=== PATIENT | female | born 1990 | race Caucasian/White ===

== ENCOUNTER 2021-01-20 02:01 | Outpatient (CLI) | payer MEDICAID, SELFPAY ==
--- NOTE | 2021-01-21 07:05 | DI.US_ITS ---
Exam(s) US OB 1ST TRIMESTER EXAM: US OB 1ST TRIMESTER CLINICAL HISTORY: ? dates,z34.90. COMPARISON: No exams were available for comparison TECHNIQUE: Transabdominal Transvaginal first trimester obstetrical ultrasound performed. FINDINGS: Sonographic images demonstrate a single intrauterine gestation. An intrauterine gestation is visualized. Sonographically assessed gestational age based upon crown-rump length of 6.6 cm is: 12 weeks 6 days Estimated date of delivery based on this ultrasound is: 07/30/2021 heart rate motion is Dopplered at: 141 bpm. No free fluid identified. The placenta appears posteriorly. Adjacent to the placenta is a round 4.1 x 5.4 x 4.5 cm hypoechoic area. This may represent a uterine fibroid. No internal blood flow is seen. It appears distinct fr om the placenta. And is separate from the cord insertion site. Pelvic Measurments Uterus: 13.3 x 8.8 x 9.8 cm Rt Ovary: Not visualized on this examination. Lt Ovary: 2.8 x 2.4 x 2.0 cm IMPRESSION: 1. Single living intrauterine gestation. Estimated sonographic age is 12 weeks 6 days. 2. Hypoechoic 4.1 x 5.4 x 4.5 cm round area associated with the uterus. It is separate from the plac enta and fetus. It may represent a uterine fibroid. DATA REPOSITORY:
== END 2021-01-20 02:21 ==
PROVIDERS: Visit Provider Advanced Practice Midwife
DX: Z34.91 Encounter for supervision of normal pregnancy, unspecified, first trimester (principal); R93.89 Abnormal findings on diagnostic imaging of other specified body structures
CPT/HCPCS: 76801

== ENCOUNTER 2021-02-14 11:51 | Emergency (ER) | payer MEDICAID, SELFPAY ==
[2021-02-14] VITALS (14 sets, daily range): BP systolic 79–126; BP diastolic 51–100; PULSE 72–114; RESP 10–26; TEMP 36.6; O2SAT 96–99
[2021-02-14 12:31] LABS: Abs Immature Grans 0.07 10^3/uL (0.0-0.06); Absolute Basophil Count 0.04 10^3/uL (0.0-0.2); Absolute Lymphocyte Count 3.16 10^3/uL (1.2-3.4); Absolute Monocyte Count 0.85 10^3/uL (0.1-0.8); Absolute Neutrophil Count 6.47 10^3/uL (1.2-6.7); Basophils % 0.4; Eosinophils % 0.9; HCT 38.2 % (36.0-46.0); HGB 13.1 g/dL (11.2-15.7); Immature Grans % 0.7; Lymphocytes % 29.6; MCH 30.8 pg (27.0-33.0); MCHC 34.3 % (32.0-36.0); MCV 89.9 fL (80-95); MPV 9.6 fL (8.0-11.0); Neutrophils % 60.4; Nucleated RBC 0 %; Platelet Count 290 10^3/uL (130-400); RBC 4.25 10^6/uL (3.93-5.22); RDW 11.9 % (11.7-14.6); RDW-SD 38.7 fL; WBC 10.69 10^3/uL (4.4-10.8)
--- NOTE | 2021-02-14 12:35 | ED.GENADUL_ITS ---
Discharge Plan Disposition Patient Disposition: HOME Condition: Stable Discharge Details Clinical Impression: demise Primary Care Provider: Flor,Local ED Provider: Augustine Humphrey Home Meds and New Rx's Prescriptions: Continued methadone 150 mg 150 mg PO DAILY RF: 0 PNV cmb#95-ferrous fumarate-FA 28 mg iron- 800 mcg tablet 1 tab PO DAILY Qty: 90 RF: 3 No Action ibuprofen 800 mg tablet 800 mg PO Q8H PRNQty: 30 RF: 0 Discharge Instructions Additional Instructions: Please rest at home. No exertional activities. Please follow-up with [facility] obstetricians as discussed with Dr. Gonzalez. If you have increased bleeding please call your OB and go to the closest ER. Return to the ER immediately for any worsening or new concerning symptoms. Discharge Data Discharge Date/Time-TO BE ENTERED AT DEPARTURE: 02/14/21 16:07 Medical Decision Making 1239 -- 30-year-old smoker at 5 months here with vaginal bleeding that started yesterday and has worsened. Patient now having to change pads every hour. She has associated mild lower abdominal cramping. No associated fever. No recent trauma. No recent sexual activity. Patient is tachycardic, normotensive. Bedside [id number] ultrasound reveals intrauterine fetus with no movement and no heartbeat. Concern for intrauterine hemorrhage. I spoke with Dr. Gonzalez, on-call OB, discussed ED presentation course. She requests official ultrasound and will evaluate the pt. 1430 --ultrasound reveals demise. Approximately 16 weeks gestational age. 1550 -- Hb nl. patient was seen by Dr. Gonzalez who spoke with [place] [facility] recommends discharge with outpatient follow-up [place] [facility] Plan was for the patient. Usual customary discharge instructions reviewed with patient. HPI General Mode of arrival: ambulatory . Date/Time Provider Initiated Documentation: 02/14/21 12:01 . Limitations to Documentation: no limitations . Information obtained by: patient . HPI Narrative: 30-year-old smoker at 5 months here with vaginal bleeding that started yesterday and has worsened. Patient now having to change pads every hour. Symptoms severe. No modifiers. She has associated mild lower abdominal cramping. No associated fever. No recent trauma. No recent sexual activity. 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: 3 Review of Systems All systems reviewed & are unremarkable except as noted in HPI and below Constitutional Constitutional: Denies fever(s) Respiratory Respiratory: Reports as per HPI Genitourinary Genitourinary: Reports as per HPI [facility] Medical History (Updated 02/18/21 @ 15:52 by Roseline Zamorano LPN) History of drug dependence/abuse heroin and cocaine Positive test Threatened miscarriage Vaginal bleeding in patient at less than 20 weeks gestation Vaginal delivery Family History Maternal Grandfather Hypertension Diabetes Maternal Grandmother Diabetes Hypertension Social History Smoking/Tobacco Use Status: Current every day Tobacco Type: cigarettes Smoking risk assessment performed?: Yes Alcohol Intake: current Drug use: Current Sobriety Substance use type: former substance user Details: Currently on 150mg Methadone daily Do you feel safe at home: Yes Do you feel safe in your relationship?: Yes History History 5 Para Hx # Term Pregnancies 2 Multiple births Hx # Pregnancies 1 Ectopic pregnancies AB induced Hx Number of Living Children 3 AB spontaneous 2 Past Pregnancies Del. Date GA/Weeks # Outcome Route Wgt Sex Labor Lgth Anesthes ia Location Prov Complic 02/14/21 16 No Unsuccessful vaginal Male Sammy Gonzalez DO Delivery Date: 02/14/21 demise; spontaneous labor with cytotec for labor augmentation. Roseline Zamorano Exam Const General: cooperative and no acute distress HENMT Mouth: moist mucous membranes Eyes Conjunctivae: normal conjunctivae Sclera: normal sclerae Neck Neck: trachea midline Resp Auscultation: clear to auscultation bilaterally, no rales, no rhonchi and no wheezes Cardio Rate: tachycardic Rhythm: regular rhythm GI Inspection: other (gravid abd) Palpation: soft, not firm, no guarding, not rigid and nontender Skin General skin exam: no rashes or lesions noted Neuro General: patient alert, patient awake, patient oriented x3 and tone normal Extrem General: no edema Psych Appearance: grossly normal Mental Status: mental status grossly normal Course Vital Signs Vital signs: Vital Signs Temperature 36.6 C 02/14/21 11:56 Pulse 114 H 02/14/21 11:56 Respiratory Rate 18 02/14/21 11:56 Blood Pressure 126/100 H 02/14/21 11:56 Pulse Oximetry 99 02/14/21 11:56 Temperature 36.6 C 02/14/21 11:56 Temperature Source Skin 02/14/21 11:56 Pulse 114 H 02/14/21 11:56 Respiratory Rate 18 02/14/21 11:56 Respiratory Effort Non-Labored 02/14/21 11:59 Blood Pressure 126/100 H 02/14/21 11:56 Blood Pressure Position Sitting 02/14/21 11:56 Pulse Oximetry 99 02/14/21 11:56 Oxygen Delivery Method Room Air 02/14/21 11:56 Oxygen Flow Rate 0 02/14/21 11:56 Pain Level 4 02/14/21 12:22 Lab/Test Results Lab/Test Results: Laboratory Tests Range/Units 02/14/21 12:15 WBC (4.4-10.8) 10^3/uL 10.69 RBC (3.93-5.22) 10^6/uL 4.25 Hgb (11.2-15.7) g/dL 13.1 Hct (36.0-46.0) % 38.2 MCV (80-95) fL 89.9 MCH (27.0-33.0) pg 30.8 MCHC (32.0-36.0) % 34.3 RDW (11.7-14.6) % 11.9 Plt Count (130-400) 10^3/uL 290 MPV (8.0-11.0) fL 9.6 Immature Gran % 0.7 Neutrophils % 60.4 Lymphocytes % 29.6 Monocytes % 8.0 Eosinophils % 0.9 Basophils % 0.4 Nucleated RBC % % 0 Absolute Neutrophils (1.2-6.7) 10^3/uL 6.47 Absolute Lymphocytes (1.2-3.4) 10^3/uL 3.16 Absolute Monocytes (0.1-0.8) 10^3/uL 0.85 H Absolute Eosinophils (0.0-0.7) 10^3/uL 0.10 Absolute Basophils (0.0-0.2) 10^3/uL 0.04
--- NOTE | 2021-02-14 12:40 | DI.US_ITS ---
Exam(s) US OB 2-3 TRIMESTER W MOD EXAM: US OB 2-3 TRIMESTER W MOD CLINICAL HISTORY: vaginal bleeding, no HB or movement on POCUS. TECHNIQUE: Transabdominal obstetrical ultrasound performed. COMPARISON: No exams were available for comparison FINDINGS: Transabdominal obstetrical ultrasound performed. FINDINGS: Number of fetuses: One. position: Breech. The fetus lies in the lower uterine segment very near the internal os. Placental location: Posterior grade 0 placenta. No evidence of previa. There is minimal amniotic fluid present. Delete the abdomen and extremities are not well visua lized due to the lack of amniotic fluid. No heart rate is heard or visualized. The cran ium is deformed with overlapping of the skull bones. BIOMETRIC DATA: BPD: 33 mm = 16 weeks 1 day HC: 136 mm = 17 weeks 2 days AC: Could not be visualized. FL: Could not be visualized. Amniotic fluid index: Visually, amount of fluid is minimal. IMPRESSION: 1. Sonographic findings are consistent with demise. 2. Results of this exam have been verbally communicated with provider. DATA REPOSITORY:
[2021-02-14 12:45] LABS: ALT 16 U/L (14-59); AST 13 U/L (15-37); Albumin 3.2 g/dL (3.4-5.0); Alkaline Phosphatase 79 U/L (46-116); Anion Gap 8.5 mmol/L (3-11); BUN 4 mg/dL (7-18); Bilirubin, Total 0.3 mg/dL (0.2-1.0); CO2 27.5 mmol/L (21.0-32.0); CREATININE 0.6 mg/dL (0.55-1.02); Calcium 8.5 mg/dL (8.5-10.1); Chloride 102 mmol/L (98-107); Glucose 96 mg/dL (74-106); Potassium 3.6 mmol/L (3.5-5.1); Sodium 138 mmol/L (136-145); Total Protein 7.3 g/dL (6.4-8.2)
[2021-02-14 13:19] LABS: Source Nasal/Nares
--- NOTE | 2021-02-14 13:33 | HPE_ITS ---
Date of service: 02/14/21 Time of Service: 13:34 Assessment and Plan Assessment and plan (1) Threatened miscarriage: Status: Acute Assessment and plan: CBC type and screen performed. Covid testing will be done. Will await official ultrasound to confirm viability. If viable, will admit for watchful waiting. If nonviable, and patient is greater than 15 weeks, would consider labor induction with misoprostol versus Pitocin. She will need second IV start due to history of hemorrhage with previous and early with bleeding. Both center, and OR notified of mango nt's condition for potential admission. Will monitor closely (2) Vaginal bleeding in patient at less than 20 weeks gestation: Status: Acute (3) Methadone use: Status: Acute (4) Uterine fibroid: Status: Acute (5) History of drug dependence/abuse: Status: Acute History of Present Illness History of Present Illness Chief Complaint: Vaginal bleeding in at 15 weeks and 4 days Consults Consult date: 02/14/21 Requesting physician: Augustine Humphrey Narrative: Patient is a 30-year-old female 5 para 2-1-1-3 who has had limited care via [facility]. She was initially seen for a positive home test which was confirmed in the office. She did have a dating ultrasound performed and diagnostic imaging showing an intrauterine at 12 weeks and 6 days giving her an estimated date of confinement of July 30, 2021. Her obstetric history has been complicated in the fact that she has had 3 previous vaginal deliveries, one with a significant hemorrhage at term and a delivery at approximately 33 weeks. She states that all of her children are doing well at this point. She did also have an early loss. She presented to the emergency department today with heavy vaginal bleeding. This started yesterday as spotting, without significant cramping. Bleeding has subsequently increased. On her evaluation in the emergency department, bedside ultrasound per emergency department physician revealed an intrauterine and cardiac activity could not be ascertained. There is also suspicion of some amount of blood clot. Due to her previous history and ultrasound after examination which showed a 4 cm intrauterine mass consistent with fibroid my recommendation would be for official ultrasound to evaluate viability, prior to decisions regarding viability of this . She states that she is here in the area living in assisted housing. She does have a history of substance use disorder and is currently using methadone at 150 mg via [facility]. He denies recent substance use other than her prescribed methadone. She has no fevers or chills. Review of Systems Constitutional Constitutional: Reports as per HPI, Denies difficulty sleeping, Denies fever(s), Denies night sweats and Denies weakness Eyes Eyes: Denies system reviewed and no additional complaints, except as documented ENT Ears, Nose, Mouth, and Throat: Reports system reviewed and no additional complaints, except as documented, Reports post nasal drip and Denies sore throat Cardiovascular Cardiovascular: Reports as per HPI, Denies chest pain, Denies irregular heart rhythm and Denies dyspnea Respiratory Respiratory: Reports system reviewed and no additional complaints, except as documented, Denies chest congestion, Denies cough and Denies dyspnea Gastrointestinal Gastrointestinal: Reports system reviewed and no additional complaints, except as documented, Denies nausea and Denies vomiting Genitourinary Genitourinary: Reports system reviewed and no additional complaints, except as documented Musculoskeletal Musculoskeletal: Reports system reviewed and no additional complaints, except as documented Neurologic Neurologic: Denies weakness Psychiatric Psychiatric: Reports system reviewed and no additional complaints, except as documented, Reports anxiety and Denies depression [facility] Medical History (Updated 02/14/21 @ 13:54 by Roseline Gonzalez DO) History of drug dependence/abuse heroin and cocaine Positive test Vaginal bleeding in patient at less than 20 weeks gestation Family History (System 02/13/21 @ 13:46 by Ivet Orozco) Maternal Grandfather Hypertension Diabetes Maternal Grandmother Diabetes Hypertension Social History (System 02/13/21 @ 13:46 by Ivet Orozco) Smoking/Tobacco Use Status: Current every day Tobacco Type: cigarettes Smoking risk assessment performed?: Yes Alcohol Intake: current Drug use: Current Sobriety Substance use type: former substance user Do you feel safe at home: Yes Do you feel safe in your relationship?: Yes History History 5 Para Hx # Term Pregnancies 2 Multiple births Hx # Pregnancies 1 Ectopic pregnancies AB induced Hx Number of Living Children 3 AB spontaneous 1 Meds Allergies and Home Medications Allergies Allergy/AdvReac Type Severity Reaction Status Date / Time No Known Allergies Allergy Verified 02/14/21 11:58 Home Medications Medication Instructions Recorded Confirmed Type methadone 150 mg PO DAILY 01/10/21 02/14/21 History vit no.95-ferrous 1 tab PO DAILY #90 tab 01/10/21 02/14/21 Rx fumarate 28 mg-folic acid 800 mcg tablet Exam Const General: cooperative, no acute distress and anxious Orientation: alert and oriented x3 HENMT Head: normal to inspection Eyes General: appearance normal, both eyes and all related structures Neck Neck: normal visual inspection and supple Resp Effort & Inspection: normal respiratory effort and no cough Cardio Rate: tachycardic Rhythm: regular rhythm GI Inspection: normal to inspection Skin General skin exam: no rashes or lesions noted Results Labs Result diagrams: 02/14/21 12:15 02/14/21 12:15 Labs: Laboratory Results - last 24 hr 02/14/21 02/14/21 02/14/21 12:15 12:15 12:15 WBC 10.69 RBC 4.25 Hgb 13.1 Hct 38.2 MCV 89.9 MCH 30.8 MCHC 34.3 RDW 11.9 Plt Count 290 MPV 9.6 Immature Gran % 0.7 Neutrophils % 60.4 Lymphocytes % 29.6 Monocytes % 8.0 Eosinophils % 0.9 Basophils % 0.4 Nucleated RBC % 0 Absolute Neutrophils 6.47 Absolute Lymphocytes 3.16 Absolute Monocytes 0.85 H Absolute Eosinophils 0.10 Absolute Basophils 0.04 Sodium 138 Potassium 3.6 Chloride 102 Carbon Dioxide 27.5 Anion Gap 8.5 BUN 4 L Creatinine 0.6 Estimated GFR/1.73 m2 >= 60.00 Glucose 96 Calcium 8.5 Total Bilirubin 0.3 AST 13 L ALT 16 Alkaline Phosphatase 79 Total Protein 7.3 Albumin 3.2 L COVID-19 Source Patient ABO/Rh O Positive Antibody Screen NEGATIVE 02/14/21 13:15 WBC RBC Hgb Hct MCV MCH MCHC RDW Plt Count MPV Immature Gran % Neutrophils % Lymphocytes % Monocytes % Eosinophils % Basophils % Nucleated RBC % Absolute Neutrophils Absolute Lymphocytes Absolute Monocytes Absolute Eosinophils Absolute Basophils Sodium Potassium Chloride Carbon Dioxide Anion Gap BUN Creatinine Estimated GFR/1.73 m2 Glucose Calcium Total Bilirubin AST ALT Alkaline Phosphatase Total Protein Albumin COVID-19 Source Nasal/Nares Patient ABO/Rh Antibody Screen Last Vital Signs Temp 97.9 F 02/14/21 11:56 Pulse 114 H 02/14/21 11:56 Resp 18 02/14/21 11:56 BP 126/100 H 02/14/21 11:56 Pulse Ox 99 02/14/21 11:56
[2021-02-14 13:40] LABS: *AMPHETAMINES SCREEN URINE Negative (Negative); *BARBITURATES SCREEN URINE Negative (Negative); *BENZODIAZEPINES SCREEN URINE Negative (Negative); Cannabinoids THC Positive (Negative); Cocaine Screen,Urine Negative (Negative); METHADONE URINE SCREEN Positive (Negative); OPIATES URINE SCREEN Negative (Negative)
[2021-02-14 13:50] LABS: Tricyclic Antidepressants Negative (Negative)
[2021-02-14 14:12] LABS: COVID-19 PCR Negative (Negative)
--- NOTE | 2021-02-14 16:37 | PGE_ITS ---
Date of Service Date of service: 02/14/21 Time of Service: 16:37 Assessment and Plan Assessment and plan (1) demise: Status: Acute Assessment and plan: Patient has an intrauterine gestational demise at approximately 16-1/2 weeks. She will be scheduled for an outpatient dilation and evacuation per [facility]. Recommend percent. Patient will be notified for time and location of presentation. She was instructed that she has further bleeding which is heavy she should report to [facility] emergency department, or here if significant bleeding and unable to travel there. She understands these risks. We will continue to care for her after her procedure. (2) Vaginal bleeding in patient at less than 20 weeks gestation: Status: Acute Subjective Subjective Interval history since last seen: After seeing and evaluating patient. Patient had a confirmatory ultrasound in the imaging showing an intrauterine gestation approximately 16-1/2 weeks with no cardiac activity consistent with intrauterine demise. There is no amniotic fluid. Fibroid again was noted. No evidence of significant hemorrhage. After conversation with the patient regarding this fact and offering either labor induction here at [facility] versus the possibility of having a dilation and evacuation, patient's preference was for dilation and evacuation. I did contact the [facility] gynecology service who agreed through their fertility team she would be able to have a dilation and evacuation scheduled early in the week next week, with the caveat that she remains hemodynamically stable. Hemoglobin is 13, vital signs are stable. Patient is having minimal bleeding at this point. Risks of watchful waiting and discharged home were explained to the patient. Precautions were given. She will be discharged to home with close follow-up. She was instructed to that if she has further bleeding she should report to [facility] emergency department for a more urgent procedure, otherwise they will contact her for time and scheduling. Exam Narrative Exam Narrative: No changes in her physical examination Objective Last Vital Signs Temp 97.9 F 02/14/21 11:56 Pulse 72 02/14/21 14:38 Resp 15 02/14/21 14:38 BP 101/64 02/14/21 14:38 Pulse Ox 96 02/14/21 14:38 Laboratory Results - last 24 hr 02/14/21 02/14/21 02/14/21 12:15 12:15 12:15 WBC 10.69 RBC 4.25 Hgb 13.1 Hct 38.2 MCV 89.9 MCH 30.8 MCHC 34.3 RDW 11.9 Plt Count 290 MPV 9.6 Immature Gran % 0.7 Neutrophils % 60.4 Lymphocytes % 29.6 Monocytes % 8.0 Eosinophils % 0.9 Basophils % 0.4 Nucleated RBC % 0 Absolute Neutrophils 6.47 Absolute Lymphocytes 3.16 Absolute Monocytes 0.85 H Absolute Eosinophils 0.10 Absolute Basophils 0.04 Sodium 138 Potassium 3.6 Chloride 102 Carbon Dioxide 27.5 Anion Gap 8.5 BUN 4 L Creatinine 0.6 Estimated GFR/1.73 m2 >= 60.00 Glucose 96 Calcium 8.5 Total Bilirubin 0.3 AST 13 L ALT 16 Alkaline Phosphatase 79 Total Protein 7.3 Albumin 3.2 L Urine Opiates Screen Urine Methadone Screen Ur Barbiturates Screen Ur Tricyclics Screen Ur Amphetamines Screen U Benzodiazepines Scrn Urine Cocaine Screen Ur THC Screen COVID-19 Source SARS-CoV-2 (PCR) Patient ABO/Rh O Positive Antibody Screen NEGATIVE 02/14/21 02/14/21 12:55 13:15 WBC RBC Hgb Hct MCV MCH MCHC RDW Plt Count MPV Immature Gran % Neutrophils % Lymphocytes % Monocytes % Eosinophils % Basophils % Nucleated RBC % Absolute Neutrophils Absolute Lymphocytes Absolute Monocytes Absolute Eosinophils Absolute Basophils Sodium Potassium Chloride Carbon Dioxide Anion Gap BUN Creatinine Estimated GFR/1.73 m2 Glucose Calcium Total Bilirubin AST ALT Alkaline Phosphatase Total Protein Albumin Urine Opiates Screen Negative Urine Methadone Screen Positive A Ur Barbiturates Screen Negative Ur Tricyclics Screen Negative Ur Amphetamines Screen Negative U Benzodiazepines Scrn Negative Urine Cocaine Screen Negative Ur THC Screen Positive A COVID-19 Source Nasal/Nares SARS-CoV-2 (PCR) Negative Patient ABO/Rh Antibody Screen
== END 2021-02-14 16:07 | disposition home or self-care (01) ==
PROVIDERS: Emergency Provider Student in an Organized Health Care Education/Training Program
DX: O02.1 Missed abortion (principal)
CPT/HCPCS: 36415; 76805; 80053; 80307; 86850; 86900; 86901; 87635; 99284; 85025

== ENCOUNTER 2021-02-14 12:21 | Observation (INO) | payer MEDICAID, SELFPAY | END 2021-02-20 13:29 | disposition short-term general hospital (02) | LOC: OBS 02-21 10:31 | PROVIDERS: Admitting Provider Obstetrics & Gynecology; Visit Provider Obstetrics & Gynecology | DX: O02.1 Missed abortion (principal); Z3A.15 15 weeks gestation of pregnancy ==

== ENCOUNTER 2021-02-14 17:33 | Inpatient (IN) | payer MEDICAID, SELFPAY ==
[2021-02-14] VITALS (15 sets, daily range): BP systolic 96–128; BP diastolic 57–80; PULSE 65–112; RESP 18; TEMP 36.5–36.6; O2SAT 99–100
--- NOTE | 2021-02-14 17:44 | W.ED.GENAD ---
Discharge Plan Disposition Patient Disposition: [facility] INPATIENT Condition: Stable Discharge Details Chief Complaint: [employer] Clinical Impression: demise, Vaginal bleeding in patient at less than 20 weeks gestation Primary Care Provider: Flor,Local ED Provider: Donnell Black Home Meds and New Rx's Prescriptions: No Action methadone 150 mg 150 mg PO DAILY RF: 0 PNV cmb#95-ferrous fumarate-FA 28 mg iron- 800 mcg tablet 1 tab PO DAILY Qty: 90 RF: 3 Medical Decision Making 30-year-old female who is approximately 16-1/2 weeks presents with lower abdominal bleeding and pain after being seen earlier today for demise of 16-1/2 weeks intrauterine . She presents with increased lower abdominal pain, cramping, report of increased blood and tissue production at home. She is pale and diaphoretic with initial hypotension. Patient had 2 peripheral IVs placed, repeat CBC obtained, patient typed and crossed for 2 units. On-call obstetrics, Dr. Gonzalez consulted and patient taken for expectant delivery. HPI General Mode of arrival: ambulatory. Date/Time Provider Initiated Documentation: 02/14/21 17:35. Limitations to Documentation: no limitations. Information obtained by: patient. History of Present Illness 30 year old F presents to the emergency department with the chief complaint of Recurrent vaginal bleeding, lower abdominal pain, described as moderate, Quality is described as aching, and is localized to the abdomen and pelvis. Patient reports no radiation. and it has been constant. No relieving factors improve symptom(s), No exacerbating factors reported . Patient notes weakness. Patient did receive the following treatments prior to arrival, none Related Data Home Medications Medication Instructions Recorded Confirmed methadone 150 mg PO DAILY 01/10/21 02/14/21 vit no.95-ferrous 1 tab PO DAILY #90 tab 01/10/21 02/14/21 fumarate 28 mg-folic acid 800 mcg tablet Previous Rx's Medication Instructions Recorded vit no.95-ferrous 1 tab PO DAILY #90 tab 01/10/21 fumarate 28 mg-folic acid 800 mcg tablet Allergies Allergy/AdvReac Type Severity Reaction Status Date / Time No Known Allergies Allergy Verified 02/14/21 11:58 General LUCERO: 3 Review of Systems Narrative: No vomiting. No fever. Was seen in the ER earlier today. 8 systems reviewed and otherwise negative. [facility] Medical History History of drug dependence/abuse heroin and cocaine Positive test Vaginal bleeding in patient at less than 20 weeks gestation Family History Maternal Grandfather Hypertension Diabetes Maternal Grandmother Diabetes Hypertension Social History Smoking/Tobacco Use Status: Current every day Tobacco Type: cigarettes Smoking risk assessment performed?: Yes Alcohol Intake: current Drug use: Current Sobriety Substance use type: former substance user Do you feel safe at home: Yes Do you feel safe in your relationship?: Yes History History 5 Para Hx # Term Pregnancies 2 Multiple births Hx # Pregnancies 1 Ectopic pregnancies AB induced Hx Number of Living Children 3 AB spontaneous 1 Exam Narrative Exam Narrative: GEN: awake, alert, pale and diaphoretic HEAD: Normocephalic, atraumatic ENT: Mucous membranes moist, oropharynx unremarkable, External ear exam unremarkable EYES: PERRL, EOMI NECK: Full ROM, no ABELINO, no menigismus CHEST/RESP: Nontender, clear to auscultation bilateral, no wheeze/rhonchi/rales CARDIOVASCULAR: RRR, no murmur, rub neetu. 2+ Rad pulse bilateral ABDOMEN: Soft, suprapubic tenderness, spotting blood of vaginal orifice. EXT: Full ROM, no edema, no rash, palpable but weak radial pulse. Neuro: Grossly normal neurologic exam, conversant, interactive. Psych: Speech fluent, thoughts congruent, affect normal Course Lab/Test Results Lab/Test Results: Laboratory Tests Range/Units 02/14/21 17:41 Crossmatch See Detail
[2021-02-14 17:54] LABS: HCT 36.3 % (36.0-46.0); HGB 12.6 g/dL (11.2-15.7); MCH 30.5 pg (27.0-33.0); MCHC 34.7 % (32.0-36.0); MCV 87.9 fL (80-95); MPV 9.5 fL (8.0-11.0); Platelet Count 303 10^3/uL (130-400); RBC 4.13 10^6/uL (3.93-5.22); RDW 11.9 % (11.7-14.6); RDW-SD 38.5 fL; WBC 12.29 10^3/uL (4.4-10.8)
[2021-02-14] MEDS: miSOPROStol 25 MCG TAB 400 MCG VG (18:52)
--- NOTE | 2021-02-14 19:11 | W.PM.OBHPL1 ---
Date of service: 02/14/21 Time of Service: 19:11 Assessment and Plan Assessment and plan (1) demise: Status: Acute Assessment and plan: Misoprostil 400 mcg q 3 hours with attempts at better pain control. Anticipate vaginal delivery. Prepared for the possibility of retained placenta/PPH (2) Vaginal bleeding in patient at less than 20 weeks gestation: Status: Acute (3) Methadone use: Status: Acute (4) Uterine fibroid: Status: Acute OB-HPI Labor/Delivery History of Present Illness Reason for Visit: Demise Chief Complaint: Uterine Contractions. RYANN Calculator Estimated Delivery Date Method Current WG Current Estimate 08/05/21 LMP (Certain) 15w 3d History of Present Expected Delivery Route/Plan Labor augmentation with cytotec, 400 mcg q 4 hours for cervical ripening and labor induction. Pain control with nitrous and supplemental Fentanyl. Anesthesia aware. Careful monitoring of blood loss. 90ml qualitatively thus far. HGB stable, VS stable Specific Issues/Plan 1. uterine fibroid, Dr. Hernandez recommends every 4 week US for growth Review of Systems All systems reviewed & are unremarkable except as noted in HPI and below Constitutional Constitutional: Reports body ache(s) Eyes Eyes: Reports system reviewed and no additional complaints, except as documented Cardiovascular Cardiovascular: Reports system reviewed and no additional complaints, except as documented Respiratory Respiratory: Reports system reviewed and no additional complaints, except as documented Gastrointestinal Gastrointestinal: Reports system reviewed and no additional complaints, except as documented Genitourinary Comments: acute onset of crampy abdominal pain and contractions with associated watery vaginal bleeding. Neurologic Neurologic: Reports system reviewed and no additional complaints, except as documented [facility] Medical History History of drug dependence/abuse heroin and cocaine Positive test Vaginal bleeding in patient at less than 20 weeks gestation Family History Maternal Grandfather Hypertension Diabetes Maternal Grandmother Diabetes Hypertension Social History Smoking/Tobacco Use Status: Current every day Tobacco Type: cigarettes Smoking risk assessment performed?: Yes Alcohol Intake: current Drug use: Current Sobriety Substance use type: former substance user Do you feel safe at home: Yes Do you feel safe in your relationship?: Yes History History 5 Para Hx # Term Pregnancies 2 Multiple births Hx # Pregnancies 1 Ectopic pregnancies AB induced Hx Number of Living Children 3 AB spontaneous 1 Meds Allergies and Home Medications Allergies Allergy/AdvReac Type Severity Reaction Status Date / Time No Known Allergies Allergy Verified 02/14/21 11:58 Home Medications Medication Instructions Recorded Confirmed Type methadone 150 mg PO DAILY 01/10/21 02/14/21 History vit no.95-ferrous 1 tab PO DAILY #90 tab 01/10/21 02/14/21 Rx fumarate 28 mg-folic acid 800 mcg tablet Exam Physical Exam Vital signs: Pulse Resp BP Pulse Ox 90 18 105/65 99 02/14/21 18:05 02/14/21 17:40 02/14/21 18:05 02/14/21 17:40 Detailed Labor and Delivery Exam Chandra Score: Cervical Points Exam 0 1 2 3 Dilation Closed 1-2cm 3-4 cm 5-6cm Effacement 0-30% 40-50% 60-70% 80% Consistency Firm Medium Soft Station -3 -2 -1,0 +1,+2 Position Posterior Mid Anterior HEENT Exam HEENT Exam: Normal Respiratory Exam Respiratory Exam: Normal Cardiovascular Exam Cardiovascular Exam: Normal Detailed Abdominal Exam Abdominal: Absent guarding, firm and rigid Extremities Exam Extremities Exam: Normal Additional findings Additional findings: moderate watery bleeding . Bulging lower uterine segment. Cervix is closed but small parts felt though lower segment. Results Abnormal Lab Findings: Abnormal Labs 02/14/21 02/14/21 17:42 17:42 WBC 12.29 H Crossmatch See Detail Risk Assessment Risks Reviewed Risks Reviewed Upon Admission: Yes
[2021-02-14] MEDS: fentaNYL 100 MCG/2 ML VIAL 50 MCG IVP ×2 (19:17→19:35)
[2021-02-14] MEDS: Normal Saline Flush 10 ML SYR IVP (19:18)
--- NOTE | 2021-02-14 19:49 | PLAC_PTH ---
PATIENT: Dona Alicia LOC: OBS U#:[id number] AGE/SX: 30/F ROOM: OBS.303 RE02/14/[address]: Roseline Gonzalez DO : 1990 BED: A DIS: 02/15/2021 SPEC #: [id number] RECD: 02/17/21 12:41 STATUS: ALEIDA REQ #: [id number] JOSESITO: 02/14/21 19:[address]: Roseline Gonzalez DEPT: Surgical Specimen RECD BY: Elyse Dolan ENTERED: 02/17/21 12:41 SP TYPE: PLAC OTHR DR: No Local Tissues: 1 - PLACENTA (NOT 3RD TRIMESTER) Procedures: GROSS AND MICRO LEVEL 4 SPECIAL STAIN 1 Comments: [id number]
--- NOTE | 2021-02-14 20:08 | W.OBDELIVERY ---
Date of service: 02/14/21 Time of Service: 20:08 OB Labor/ Delivery Information Baby A Delivery Delivery Method: Spontaneaous Presentation: Other (en caul) Breech Position: Darin Cord Description-Baby A: 3 Vessels Amniotic Fluid: Bloody Estimated Blood Loss: 100 Delivery Outcome: AB <20 Weeks Note: Patient progressed to complete and pushing after one dose of Cytotec PV. Fetus and placenta delivered en Caul. Minimal post bleeding. perineum in tact. Fetus is male. Placenta in tact. Placenta for exam. Mom will hold baby after pain subsides. Overall, doing as well as expected Providers Doctor: Roseline Gonzalez Labor/Delivery Information Number of Babies in Womb: 1 Blood Type: O+ Maternal Complications: None Baby A Infant Gender: Male
[2021-02-15 00:05] VITALS: BP 115/76; PULSE 88
[2021-02-15 01:20] VITALS: BP 120/72; PULSE 79
[2021-02-15 04:55] VITALS: BP 126/71; PULSE 71; RESP 15; TEMP 36.5; O2SAT 100
[2021-02-15] MEDS: Methadone Liquid 10 MG/ML 150 MG PO (08:48)
[2021-02-15 09:15] VITALS: BP 121/65; PULSE 102; RESP 18; TEMP 36.8; O2SAT 99
--- NOTE | 2021-02-15 10:44 | W.PM.OBPNV1 ---
Date of service: 02/15/21 Time of Service: 10:45 Assessment and Plan Assessment and plan (1) Vaginal delivery: Status: Acute Assessment and plan: Patient is day #1 status post normal spontaneous vaginal delivery with labor induction of a 16-week demise. She is doing well post day #1. Grieving appropriately she will have close follow-up. Support services were given. She will be seen in the office by me in 1 week, sooner if needed (2) demise: Status: Acute Subjective Subjective Interval history: Patient seen and examined this morning. Physically well. Grieving appropriately. Questions regarding disposition of her baby. Patient comments: No complaints [place] baby status: Doing well Exam Physical Exam Vital signs: Temp Pulse Resp BP Pulse Ox 97.7 F 71 15 126/71 100 02/15/21 04:55 02/15/21 04:55 02/15/21 04:55 02/15/21 04:55 02/15/21 04:55 Vital Signs Reviewed: Yes Constitutional Constitutional: no acute distress Comments: Appropriately grieving Neck Exam Neck Exam: Normal Respiratory Exam Respiratory Exam: Normal Abdominal Exam Comments: Normal Neurological Exam Neurological Exam: Normal DetailedPsychiatric Exam Psych Exam: Normal Affect and Normal Thougth Process Comments: Grieving appropriately Results Hemoglobin/Hematocrit: Hgb 12.6 g/dL (11.2-15.7) 02/14/21 17:42 Hct 36.3 % (36.0-46.0) 02/14/21 17:42 Abnormal Lab Findings: Abnormal Labs 02/14/21 02/14/21 17:42 17:42 WBC 12.29 H Crossmatch See Detail
--- NOTE | 2021-02-15 10:49 | W.PM.OBDISCH ---
Date of service: 02/15/21 Time of Service: 10:49 DS: Diagnosis Discharge Diagnosis (1) Vaginal delivery: Status: Acute (2) demise: Status: Acute Discharge Plan Disposition Patient Disposition: HOME Condition: Good Discharge Details Reason For Visit: Demise Admit Date/Time: 02/14/21 18:00 Admit Provider: Roseline Gonzalez Attending Provider: Roseline Gonzalez Primary Care Provider: Flor,Local Hospital Course Hospital Course: Patient return to the emergency department after previous discharge with a known intrauterine demise. She had onset of pain and contractions, along with vaginal bleeding. She is back to the center. She received 1 dose of 400 mcg of Cytotec intravaginally. She delivered en caul nonviable fetus and placenta. She did uncomplicated course. vice president of consulting services are involved. She will be discharged home with close follow-up Home Meds and New Rx's Prescriptions: New ibuprofen 800 mg tablet 800 mg PO Q8H PRNQty: 30 RF: 0 Continued methadone 150 mg 150 mg PO DAILY RF: 0 PNV cmb#95-ferrous fumarate-FA 28 mg iron- 800 mcg tablet 1 tab PO DAILY Qty: 90 RF: 3 Discharge Instructions Activity:: Activity as Tolerated Equipment/Supplies:: No Equipment Needed Diet:: As Tolerated Discharge Orders Discharge Orders: Discharge Order (Routine); Ordered 02/15/21 Ordered By: Roseline Gonzalez OB:DS Summary Summary Vaginal Delivery Method: Spontaneaous Contraception Discussed Contraception Discussed: No, Gender-Baby A: Male weight: 4.762 oz Status at Discharge Functional status at discharge: independent ambulation Overall status at discharge: patient is back to baseline Mental Status: mental status grossly normal Speech and Movement: speech and movement normal Mood: congruent mood Affect: normal affect and sad Exam Physical Exam Vital signs: Temp Pulse Resp BP Pulse Ox 97.7 F 71 15 126/71 100 02/15/21 04:55 02/15/21 04:55 02/15/21 04:55 02/15/21 04:55 02/15/21 04:55 Constitutional Comments: See physical exam from progress note dated 02/15/2021 [facility] Medical History (Updated 02/15/21 @ 10:46 by Roseline Gonzalez DO) History of drug dependence/abuse heroin and cocaine Positive test Vaginal bleeding in patient at less than 20 weeks gestation Vaginal delivery Family History Maternal Grandfather Hypertension Diabetes Maternal Grandmother Diabetes Hypertension Social History Smoking/Tobacco Use Status: Current every day Tobacco Type: cigarettes Smoking risk assessment performed?: Yes Alcohol Intake: current Drug use: Current Sobriety Substance use type: former substance user Details: Currently on 150mg Methadone daily Do you feel safe at home: Yes Do you feel safe in your relationship?: Yes History History 5 Para Hx # Term Pregnancies 2 Multiple births Hx # Pregnancies 1 Ectopic pregnancies AB induced Hx Number of Living Children 3 AB spontaneous 1 DS: Data Vitals/I&O Vitals and I&O: Vital Signs Temperature 97.7 F 02/15/21 04:55 Pulse 71 02/15/21 04:55 Pulse Rhythm Regular 02/14/21 20:10 Respiratory Rate 15 02/15/21 04:55 Blood Pressure 126/71 02/15/21 04:55 Blood Pressure Mean 89 02/15/21 04:55 Blood Pressure Position Sitting 02/14/21 17:40 Pulse Oximetry 100 02/15/21 04:55 Oxygen Delivery Method Room Air 02/14/21 17:40 Oxygen Flow Rate 0 02/14/21 17:40 Pain Level 10 02/14/21 20:10 Comment 02/14/21 21:50 Intake & Output 02/14/21 02/14/21 02/15/21 11:59 23:59 11:59 Intake Total Output Total 215 / 215 50 / 50 Balance -205 / -205 -50 / -50 Weight 162 lb 4.163 oz Intake: IV Output: Blood 215 / 215 50 / 50 Other: Urine Color Pale Yellow Data Completed and Pending Labs on day of discharge: Labs from last 24 hours 02/14/21 02/14/21 17:42 17:42 WBC 12.29 H RBC 4.13 Hgb 12.6 Hct 36.3 MCV 87.9 MCH 30.5 MCHC 34.7 RDW 11.9 Plt Count 303 MPV 9.5 Patient ABO/Rh O Positive Antibody Screen NEGATIVE Crossmatch See Detail
== END 2021-02-15 12:25 | disposition home or self-care (01) | DRG 806 ==
LOC: ER 18:01 → OBS 18:21
PROVIDERS: Admitting Provider Obstetrics & Gynecology; Emergency Provider Emergency Medicine; Visit Provider Obstetrics & Gynecology
DX: O02.1 Missed abortion (principal); F11.20 Opioid dependence, uncomplicated; Z37.1 Single stillbirth; O99.324 Drug use complicating childbirth; F14.20 Cocaine dependence, uncomplicated; O03.1 Delayed or excessive hemorrhage following incomplete spontaneous abortion; Z3A.16 16 weeks gestation of pregnancy; I95.89 Other hypotension; O99.334 Smoking (tobacco) complicating childbirth; F17.210 Nicotine dependence, cigarettes, uncomplicated; O34.12 Maternal care for benign tumor of corpus uteri, second trimester; D25.9 Leiomyoma of uterus, unspecified
CPT/HCPCS: 59820; 36415; 85027; 86850; 86900; 86901; 86920; 88305; 99285; 88312; J3010; J3490

== ENCOUNTER 2021-02-15 15:42 | Outpatient (CLI) | payer MEDICAID, SELFPAY ==
[2021-02-16] MEDS: Methadone Liquid 10 MG/ML 150 MG PO (08:45)
== END 2021-02-15 15:43 | disposition home or self-care (01) ==
PROVIDERS: Visit Provider Obstetrics & Gynecology
DX: O99.325 Drug use complicating the puerperium (principal); F11.20 Opioid dependence, uncomplicated

== ENCOUNTER 2021-07-08 08:08 | Emergency (ER) | payer MEDICAID, SELFPAY ==
[2021-07-08 08:11] VITALS: BP 124/80; PULSE 76; RESP 16; TEMP 36.7; O2SAT 100
--- NOTE | 2021-07-08 08:24 | ED.GENADUL_ITS ---
Discharge Plan Disposition Patient Disposition: HOME Condition: Stable Discharge Details Clinical Impression: Abscess, dental Primary Care Provider: Flor,Local ED Provider: Elyse Owusu Home Meds and New Rx's Prescriptions: New clindamycin HCl 150 mg capsule 450 mg PO TID Qty: 90 0RF Continued methadone 150 mg 150 mg PO DAILY 0RF ibuprofen [IBU-200] 200 mg Tablet 200 mg PO Q6H PRN0RF Discharge Instructions Instructions: Dental Abscess (ED) Additional Instructions: Take antibiotic as prescribed Take ibuprofen 600 mg every 6 hours with food as needed for pain You may take Tylenol 650 mg every 6 hours as needed for pain Gargle with warm salt water 3 times a day Medical Decision Making Patient placed on antibiotic, clindamycin 453 times daily On methadone, no indication for opiate analgesia We will take ibuprofen and Tylenol, appropriate dosing discussed Dental resource list supplied No evidence of Ludwigs angina Return precautions discussed and patient expressed understanding Medical Records Medical records reviewed: Yes I reviewed the patient's medical records. Lab Data Lab results reviewed: Yes I reviewed the patient's lab results. HPI General Date/Time Provider Initiated Documentation: 07/08/21 08:12 . Limitations to Documentation: no limitations . Information obtained by: patient . HPI Narrative: This 30-year-old female presents as a left dental pain for the past 24 hours. States she woke up this morning and had some swelling to her face which is why she presents. She took ibuprofen last night for pain. She is on methadone chronically. She denies any fever or chills or chance of . She denies any chest pain, shortness of breath, or difficulty swallowing. She denies any trauma to the affected tooth. Related Data Home Medications Medication Instructions Recorded Confirmed methadone 150 mg PO DAILY 01/10/21 07/08/21 clindamycin HCl 150 mg capsule 450 mg PO TID #90 cap 07/08/21 ibuprofen 200 mg tablet (IBU-200) 200 mg PO Q6H PRN 07/08/21 07/08/21 Previous Rx's Medication Instructions Recorded clindamycin HCl 150 mg capsule 450 mg PO TID #90 cap 07/08/21 Allergies Allergy/AdvReac Type Severity Reaction Status Date / Time codeine Allergy Skin Rash Unverified 07/08/21 08:18 General Stated Complaint: DentalOral LUCERO: 4 Review of Systems Narrative: Review of systems obtained x7 and negative specifications HPI PFSH All Active Problems (Updated 07/08/21 @ 08:32 by JAYASHREE Au) Abscess, dental (Acute) Threatened miscarriage (Acute) (Acute) Vaginal delivery (Acute) demise (Acute) Spontaneous vaginal delivery en caul. Placental pathology suggestive of ascending intraamniotic infection prior to demise Vaginal bleeding in patient at less than 20 weeks gestation (Acute) Positive test (Acute) Methadone use (Acute) Uterine fibroid (Acute) History of drug dependence/abuse (Acute) heroin and cocaine Family History Maternal Grandfather Hypertension Diabetes Maternal Grandmother Diabetes Hypertension Social History Smoking/Tobacco Use Status: Current every day Tobacco Type: cigarettes Smoking risk assessment performed?: Yes Alcohol Intake: current Drug use: Current Sobriety Substance use type: former substance user Details: Currently on 150mg Methadone daily Do you feel safe at home: Yes Do you feel safe in your relationship?: Yes History History 5 Para Hx # Term Pregnancies 2 Multiple births Hx # Pregnancies 1 Ectopic pregnancies AB induced Hx Number of Living Children 3 AB spontaneous 2 Past Pregnancies Del. Date GA/Weeks # Outcome Route Wgt Sex Labor Lgth Anesthes ia Location Prov Complic 02/14/21 16 No Unsuccessful vaginal Male Sammy Gonzalez DO Delivery Date: 02/14/21 Last Updated by: Roseline Garland LPN demise; spontaneous labor with cytotec for labor augmentation. Exam Const General: cooperative, comfortable and no acute distress [facility] Face images: 1. tenderness, mild swelling Other: Widespread dental decay #11 with infected abscess,, no stridor, no obvious drainable abscess noted on my exam No soft palate induration, no hard palate induration, no trismus, maintaining secretions, no stridor Eyes Pupils: PERRL Resp Effort & Inspection: normal respiratory effort Cardio Rate: regular rate Neuro General: patient alert and patient oriented x3 Course Vital Signs Vital signs: Vital Signs Temperature 36.7 C 07/08/21 08:11 Pulse 76 07/08/21 08:11 Respiratory Rate 16 07/08/21 08:11 Blood Pressure 124/80 07/08/21 08:11 Pulse Oximetry 100 07/08/21 08:11 Temperature 36.7 C 07/08/21 08:11 Temperature Source Temporal Artery Scan 07/08/21 08:11 Pulse 76 07/08/21 08:11 Respiratory Rate 16 07/08/21 08:11 Respiratory Effort Non-Labored 07/08/21 08:16 Blood Pressure 124/80 07/08/21 08:11 Blood Pressure Position Sitting 07/08/21 08:11 Pulse Oximetry 100 07/08/21 08:11 Oxygen Delivery Method Room Air 07/08/21 08:11 Oxygen Flow Rate 0 07/08/21 08:11 Pain Level 8 07/08/21 08:11
== END 2021-07-08 08:40 | disposition home or self-care (01) ==
PROVIDERS: Emergency Provider Physician Assistant
DX: K04.7 Periapical abscess without sinus (principal)
CPT/HCPCS: 99283